=== PATIENT | female | born 1945 | race Caucasian/White ===

== ENCOUNTER 2019-05-18 16:12 | Emergency (ER) | payer MEDICARE ==
[~2019-05-18] VITALS: Ht 167.6 cm; Wt 74.8 kg
[2019-05-18] MEDS ORDERED: PANTOPRAZOLE 40 MG 10ML VIAL IV STA (17:10)
[2019-05-18] MEDS ORDERED: KETOROLAC TROMETHAMINE 30 MG/ML VIAL IV STA (17:10)
[2019-05-18] MEDS ORDERED: SODIUM CHLORIDE 0.9% 1000ML 1,000 ML IV STA (17:10)
[2019-05-18] MEDS ORDERED: HYDROCODONE/CHLORPHENIRAMINE 5 ML LIQCR PO ONE (17:15)
[2019-05-18] MEDS ORDERED: ALBUTEROL/IPRATROPIUM 3 ML NEB NEB ONE (17:15)
--- NOTE | 2019-05-18 17:47 | Diagnostic Imaging Report ---
EXAM: CHEST 2 VIEWS DATE: 05/18/2019 5:10 PM INDICATION: Cough COMPARISON: None FINDINGS: The trachea is midline. The lungs are symmetrically expanded without evidence for focal consolidation, pneumothorax, or significant pleural effusion. The cardiomediastinal silhouette and pulmonary vasculature are within normal limits. Atherosclerotic calcifications are noted within the aortic arch. No acute osseous abnormalities identified. The surrounding soft tissues are unremarkable. Cholecystectomy clips noted within the right upper quadrant. IMPRESSION: No acute cardiopulmonary process identified. Signed by: Dr. Josh Haney MD on 05/18/2019 5:44 PM
[2019-05-18 17:51] LABS: BILIRUBIN,URINE NEGATIVE (NEGATIVE); CLARITY,URINE SL CLOUDY (CLEAR); COLOR,URINE YELLOW (YELLOW); KETONES,URINE NEGATIVE (NEGATIVE); LEUKOCYTE ESTERASE ,URINE TRACE (NEGATIVE); NITRITE,URINE POSITIVE (NEGATIVE); PROTEIN,URINE DIPSTICK TRACE (NEGATIVE); URINE UROBILINOGEN 0.2 mg/dL (0.2 - 1)
[2019-05-18 18:07] LABS: BASOPHILS % 0.3 % (0.0-1.0); HEMOGLOBIN 14.7 g/dL (12.0-16.0); LYMPHOCYTES # (AUTO) 1.7 (1.0-3.2); LYMPHOCYTES % 27.8 % (18.0-39.1); MEAN CORPUSCULAR HEMOGLOBIN 29.5 pg (28-32); MEAN CORPUSCULAR HGB CONC 34.2 g/dL (31-35); MEAN CORPUSCULAR VOLUME 86.2 fL (81-99); MONOCYTES # (AUTO) 0.6 (0.2-0.8); MONOCYTES % 8.9 % (4.4-11.3); NEUTROPHILS # (AUTO) 3.9 (2.1-6.9); NEUTROPHILS % 62.7 % (38.7-80.0); PLATELET COUNT 248 x10e3/uL (140-360); RED BLOOD COUNT 4.99 x10e6/uL (3.6-5.1); RED CELL DISTRIBUTION WIDTH 12.8 % (11.7-14.4)
[2019-05-18 18:13] LABS: BACTERIA,URINE FEW /HPF; EPITHELIAL CELLS,URINE FEW /LPF
[2019-05-18 18:23] LABS: ALBUMIN 4.1 g/dL (3.5-5.0); ALBUMIN/GLOBULIN RATIO 1.2 (0.8-2.0); ANION GAP 17.6 mmol/L (8-16); CALCIUM 9.2 mg/dL (8.4-10.2); CREATININE, SERUM 1.2 mg/dL (0.57-1.11); MAGNESIUM 1.8 MG/DL (1.3-2.1); POTASSIUM 3.6 mmol/L (3.5-5.1)
[2019-05-18] MEDS ORDERED: CEFTRIAXONE SOD 1 GM/NS 50 ML 50 ML IV ONE (18:30)
--- NOTE | 2019-05-18 18:35 | NUR ---
STILL WAITING FOR CHEMISTRIES
[2019-05-18 19:27] VITALS: BP 128/64
== END 2019-05-18 19:51 | disposition home or self-care (01) ==
LOC: ER 16:12
DX: R50.9 Fever, unspecified (principal); R05 Cough; J11.1 Influenza due to unidentified influenza virus with other respiratory manifestations; K52.9 Noninfective gastroenteritis and colitis, unspecified; N30.90 Cystitis, unspecified without hematuria; E86.0 Dehydration; N28.9 Disorder of kidney and ureter, unspecified
CPT/HCPCS: 36415; 71046; 80053; 81001; 83735; 85025; 87086; 87186; 94640; 99284; C9113; J0696; J1885; J7030

== ENCOUNTER 2019-05-21 18:59 | Emergency (ER) | payer MEDICARE ==
[~2019-05-21] VITALS: Ht 167.6 cm; Wt 74.8 kg
--- OUTSIDE RECORDS SUMMARY | 2019-05-21 19:02 | XMS REPORT ---
Author [facility] Address Unknown Phone Unavailable Care Team Providers Care Design Engineering Specialist Name Role Phone Juancho DANIELS Unavailable Unavailable Problems This patient has no known problems. Allergies, Adverse Reactions, Alerts This patient has no known allergies or adverse reactions. Medications This patient has no known medications. Results Test Description Test Time Test Comments Text Results Atomic Results Result Comments CHEST 2 VIEWS 2019-05-18 17:43:[address] [address] Patient Name: ESSENCE SARMIENTO MR #: [id number] : 1945 Age/Sex: 73/F Req #: [id number] Adm Physician: Ordered by: ADRI DANIELS MD Report #: [id number] Location: ER Room/Bed: Procedure: [id number] DX/CHEST 2 VIEWS Exam Date: 05/18/19 Exam Time: 1730 REPORT STATUS: Signed EXAM: CHEST 2 VIEWS DATE: 05/18/2019 5:10 PM INDICATION: Cough COMPARISON: None FINDINGS: The trachea is midline. The lungs are symmetrically expanded without evidence for focal consolidation, pneumothorax, or significant pleural effusion. The cardiomediastinal silhouette and pulmonary vasculature are within normal limits. Atherosclerotic calcifications are noted within the aortic arch. No acute osseous abnormalities identified. The surrounding soft tissues are unremarkable. Cholecystectomy clips noted within the right upper quadrant. IMPRESSION: No acute cardiopulmonary process identified. Signed by: Dr. Josh Solano MD on 05/18/2019 5:44 PM Dictated By: JOSH SOLANO MD 43 Transcribed By: SLIME on 05/18/191743 COPY TO: ADRI DANIELS MD
[2019-05-21] MEDS ORDERED: ACETAMINOPHEN/CODEINE 300MG - 30MG TAB PO ONE (19:45)
--- NOTE | 2019-05-21 20:30 | Diagnostic Imaging Report ---
EXAMINATION: RIBS UNILAT W/CXR INDICATION: PAIN RT RIBS THINK FX IT COMPARISON: 05/18/2019 FINDINGS: PA and lateral views TUBES and LINES: None. LUNGS: Lungs are well inflated. There is no evidence of pneumonia or pulmonary edema. PLEURA: No pleural effusion or pneumothorax. HEART AND MEDIASTINUM: The cardiomediastinal silhouette is unremarkable. BONES AND SOFT TISSUES: No acute osseous lesion. Degenerative changes are seen in the spine. Soft tissues are unremarkable. UPPER ABDOMEN: No free air under the diaphragm. There are cholecystectomy clips. IMPRESSION: No displaced fracture noted. Signed by: Dre Holder MD on 05/21/2019 8:27 PM
[2019-05-21] MEDS ORDERED: TYLENOL WITH C1 EACH PO (20:40)
== END 2019-05-21 19:00 | disposition home or self-care (01) ==
LOC: ER 18:59
DX: R07.81 Pleurodynia (principal); R07.89 Other chest pain; R05 Cough; F17.210 Nicotine dependence, cigarettes, uncomplicated
CPT/HCPCS: 71101; 99284

== ENCOUNTER 2022-03-24 19:28 | Emergency (ER) | payer MEDICARE, OTHER ==
[~2022-03-24] VITALS: Ht 167.6 cm; Wt 74.8 kg
[~2022-03-24 19:28] MED LIST: TYLENOL WITH C1 EACH PO
[2022-03-24] MEDS ORDERED: TETANUS/DIPHTHERIA TOX ADULT 0.5 ML SYR IM ONE (20:15)
[2022-03-24] MEDS ORDERED: CIPROFLOXACIN 500 MG TAB PO ONE (20:15)
[2022-03-24] MEDS ORDERED: IBUPROFEN 600 MG TAB ONE (20:28)
[2022-03-24] MEDS ORDERED: IBUPROFEN 600 MG TAB PO STA (20:46)
[2022-03-24] MEDS ORDERED: CIPRO500 MG PO (22:13)
== END 2022-03-24 22:33 | disposition home or self-care (01) ==
LOC: ER 19:46
DX: S91.331A Puncture wound without foreign body, right foot, initial encounter (principal); W45.0XXA Nail entering through skin, initial encounter; Y93.01 Activity, walking, marching and hiking; Y92.89 Other specified places as the place of occurrence of the external cause
CPT/HCPCS: 90714; 99283